=== PATIENT | male | born 2000 ===

== ENCOUNTER 2019-04-02 21:50 | Emergency (ER) | payer BC ==
[~2019-04-02] VITALS: Ht 180.3 cm; Wt 81.7 kg
== END 2019-04-03 01:05 | disposition home or self-care (01) ==
LOC: ER 21:50
DX: S61.021A Laceration with foreign body of right thumb without damage to nail, initial encounter (principal); W26.8XXA Contact with other sharp object(s), not elsewhere classified, initial encounter
CPT/HCPCS: 12001; 99282-25; A9270-GY